=== PATIENT | male | born 2005 | race Two or more races ===

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

== ENCOUNTER 2024-03-22 12:24 | Emergency (ER) | payer MEDICAID, SELFPAY ==
[~2024-03-22] VITALS: Ht 175.3 cm; Wt 69.2 kg
[~2024-03-22 12:24] MED LIST changes: +ZOFR4T PO
[2024-03-22 12:37] VITALS: TEMP 99.5
[2024-03-22 12:51] VITALS: BP 151/90
--- NOTE | 2024-03-22 13:25 | ED.PDOC ---
Eye-HPI HPI Comments A 18 YEAR OLD MALE PRESENTS TO THE ED WITH COMPLAINT OF SORE THROAT. PATIENT STATES HE HAS BEEN EXPERIENCING A SORE THROAT THAT IS WORSE WITH SWALLOWING FOR THE PAST 3 DAYS. PATIENT DENIES FEVER, CHILLS, SHORTNESS OF BREATH, CHEST PAIN, ABDOMINAL PAIN, NAUSEA, VOMITING, HEADACHE, OR OTHER COMPLAINTS. NO OTHER SYMPTOMS OR MODIFYING FACTORS AT THIS TIME. PATIENT IS ALERT, ORIENTED X 4, AND HAS STEADY GAIT. Chief Complaint: Sore Throat Time Seen by MD: 12:48 Primary Care Provider: NONE Reviewed Notes: Nurses Notes, Medications, Allergies Allergies: Coded Allergies: NO KNOWN ALLERGIES (Unverified , 06/08/22) Home Meds Active Scripts Lidocaine HCl (Mouth-Throat) (Lidocaine HCl Viscous) 2 % Harika, 5 ML MT TID, #100 ML Prov:MITALI FONTANA 03/22/24 Clindamycin Hcl (Clindamycin Hcl) 300 Mg Cap, 1 CAP PO TID, #30 CAP Prov:MITALI FONTANA 03/22/24 Ondansetron Odt 4MG Tab (ZOFRAN PO) 4 Mg Tb, 4 MG PO TID PRN, #20 TAB ODT TAB-DISSOLVE IN MOUTH, THEN SWALLOW Prov:CHRISSIE STOUT 03/13/23 Ondansetron (Zofran) 4 Mg Tab, 1 TAB PO Q6HR PRN, #10 TAB 0 Refills Prov:PAULA HOANG 06/08/22 Information Source: Patient Mode of Arrival: Ambulatory Timing: Days Duration: Since onset, Days Prehospital treatment: None Quality: Pain, Red Lids: Normal Conjunctiva: Normal Cornea: Normal Pupils: Normal EOM: Normal Fundus: Normal Slit lamp exam: Normal Anterior chamber: Normal Mouth Location: Pharynx Mouth: Normal ENT Ear Exam: Normal, Normal, Normal Nose: Normal Sinuses: Normal Oropharynx: Tonsillar hypertrophy, Red, Exudate Onset: Spontaneous Throat Exposed to: None History of: None Last Tetanus: UTD Modifying factors: Nothing Associated signs and symptoms: Sore Throat Past Medical History PAST MEDICAL HISTORY: Denies Surgical History: Denies all surgeries Family History Family History: Reviewed,noncontributory to illness Social History Smoker: Non-Smoker Alcohol: Denies ETOH Use Drugs: Marijuana Lives In: Home Constitutional: denies: chills, diaphoresis, fatigue, fever, malaise, sweats, weakness, others EENTM: reports: throat pain, throat swelling; denies: blurred vision, double vision, ear bleeding, ear discharge, ear drainage, ear pain, ear ringing, eye pain, eye redness, hearing loss, mouth pain, mouth swelling, nasal discharge, nose bleeding, nose congestion, nose pain, photophobia, tearing, voice changes, others Respiratory: denies: cough, hemoptysis, orthopnea, SOB at rest, shortness of breath, SOB with excertion, stridor, wheezing, others Cardiovascular: denies: chest pain, dizzy spells, diaphoresis, Dyspnea on exertion, edema, irregular heart beat, left arm pain, lightheadedness, palpitations, PND, syncope, others Gastrointestinal: denies: abdomen distended, abdominal pain, blood streaked bowels, constipated, diarrhea, dysphagia, difficulty swallowing, hematemesis, melena, nausea, poor appetite, poor fluid intake, rectal bleeding, rectal pain, vomiting, others Genitourinary: denies: burning, dysuria, flank pain, frequency, hematuria, incontinence, penile discharge, penile sore, pain, testicle pain, testicle swelling, urgency, others Neurological: denies: dizziness, fainting, headache, left sided numbness, left sided weakness, numbness, paresthesia, pre-existing deficit, right sided numbness, right sided weakness, seizure, speech problems, tingling, tremors, weakness, others Musculoskeletal: denies: back pain, gout, joint pain, joint swelling, muscle pain, muscle stiffness, neck pain, others Integumetry: denies: bruises, change in color, change in hair/nails, dryness, laceration, lesions, lumps, rash, wounds, others Allergic/Immunocompromised: denies: Difficulty Healing, Frequent Infections, Hives, Itching, others Hematologic/Lymphatic: denies: anemia, blood clots, easy bleeding, easy bruising, swollen glands, others Endocrine: denies: excessive hunger, excessive sweating, excessive thirst, excessive urination, flushing, intolerance to cold, intolerance to heat, unexplained weight gain, unexplained weight loss, others Psychiatric: denies: anxiety, bipolar disorder, depression, hopeless, panic disorder, schizophrenia, sleepless, suicidal, others All Other Systems: Reviewed and Negative Physical Exam General Appearance: No Apparent Distress, Normal HEENT: PERRL/EOMI, Pharyngeal Erythema (TONSILLAR SWELLING WITH MILD EXUDATES. ), TMs Normal, Tonsillar Exudate (MILD ) Neck: Full Range of Motion, Lymphadenopathy (L), Normal Inspection, Supple, Tender Lateral (TENDERNESS LEFT UPPER CERVICAL LYMPH NODE. ) Respiratory: Chest Non-Tender, Lungs Clear, No Accessory Muscle Use, No Respiratory Distress, Normal Breath Sounds Cardiovascular: No Edema, No JVD, No Murmur, No Gallop, Normal Peripheral Pulses, Regular Rate/Rhythm Breast Exam: Deferred Gastrointestinal: No Organomegaly, Non Tender, No Pulsatile Mass, Normal Bowel Sounds, Soft Genitalia: Deferred Pelvic: Deferred Rectal: Deferred Extremities: No calf tenderness, Normal capillary refill, Normal inspection, Normal range of motion, Non-tender, No pedal edema Musculoskeletal : Apperance: Normal Neurologic: Alert, plaque maker II-XII nml as Tested, No Motor Deficits, Normal Affect, Normal Mood, No Sensory Deficits Cerebellar Function: Normal Reflexes: Normal Skin: Dry, Normal Color, Warm Peripheral Pulses: 2+ carotid (R), 2+ carotid (L) Lymphatic: Cervical Adenopathy (L) Was a procedure done? Was a procedure done?: No EENT DIFF Eye: N/A Ear: Otitis Media, Pharyngitis, Sinusitis Nose: N/A Mouth: N/A Sore Throat: Pharyngitis, Streptococcal, Viral Pharyngitis, URI X-Ray, Labs, Meds, VS Vital Signs Date Time Temp Pulse Resp B/P (MAP) Pulse Ox O2 Delivery O2 Flow Rate FiO2 03/22/24 13:41 76 18 97 Room Air* 0 21 03/22/24 12:51 99.5 76 18 151/90 (110) 97 03/22/24 12:37 99.5 76 18 151/90 (110) 97 99.5 Lab Test 03/22/24 13:53 Range/Units Group A Streptococcus Rapid Negative Current Medications Medications (Trade) Dose Ordered Sig/Janak Route Start Time Stop Time Status Last Admin Ceftriaxone Sodium 50 ml @ 100 mls/hr ONCE ONCE IV 03/22/24 13:30 03/22/24 13:59 DC 03/22/24 13:34 Clindamycin Phosphate 50 ml @ 50 mls/hr ONCE ONCE IV 03/22/24 13:30 03/22/24 14:29 03/22/24 13:51 Ketorolac Tromethamine (Toradol Injection) 30 mg ONCE ONCE IV 03/22/24 13:30 03/22/24 13:31 DC 03/22/24 13:34 Methylprednisolone Sodium Succinate (Solu Medrol) 125 mg ONCE ONCE IV 03/22/24 13:30 03/22/24 13:31 DC 03/22/24 13:34 X-Ray, Labs, Meds, VS Comment TREATMENT: ROCEPHIN 1 G IV, CLINDAMYCIN 600 MG IV, TORADOL 30 MG IV, SOLU- MEDROL 125 MG IV LABS ORDERED: STREP A RAPID REVIEWED AND INTERPRETED RESULTS: NEGATIVE Time of 1ST Reevaluation: 14:30 Reevaluation 1ST: Improved Patient Education/Counseling: Diagnosis, Treatment, Need For Follow Up Family Education/Counseling: Diagnosis, Treatment, Need For Follow Up Medical Screening: No EMC Exist At This Time Departure 1 Departure Time of Disposition: 14:30 Impression: Primary Impression: Exudative tonsillitis Additional Impression: Cervical adenitis Disposition: 01 HOME / SELF CARE / HOMELESS Condition: Stable Additional Instructions: FOLLOW-UP WITH PCP IN 1 TO 2 DAYS. TAKE MEDICATIONS PRESCRIBED. RETURN TO ED FOR ANY NEW OR WORSENING SYMPTOMS. e-Prescriptions Lidocaine HCl (Mouth-Throat) (Lidocaine HCl Viscous) 2 % Harika 5 ML MT TID, #100 ML Prov: MITALI FONTANA 03/22/24 Clindamycin Hcl (Clindamycin Hcl) 300 Mg Cap 1 CAP PO TID, #30 CAP Prov: MITALI FONTANA 03/22/24 Discharged With: Self Critical Care Note Critical Care Time?: No Stability Stability form required: No I personally scribed for MITALI FONTANA ([email or web address]) on 03/22/24 at 13:25. Electronically submitted by Dedrick Hui ([email or web address]). I personally scribed for MITALI FONTANA ([email or web address]) on 03/22/24 at 14:17. Electronically submitted by Dedrick Hui ([email or web address]). MITALI FONTANA Mar 22, 2024 13:25
[2024-03-22] MEDS: KETOROLAC TROMETH 30 MG/ML 1ML VIAL IV ONE (13:34)
[2024-03-22] MEDS: methylPREDNISolone SOD SUCC 125 MG/2 ML VL IV ONE (13:34)
[2024-03-22] MEDS: cefTRIAXone 1GM/50ML D5W 50 ML IV ONE (13:34)
[2024-03-22 13:41] VITALS: PULSE 76; RESP 18; O2SAT 97
[2024-03-22] MEDS: CLINDAMYCIN 600MG IV 50 ML IV ONE (13:51)
[2024-03-22] MEDS ORDERED: LIDO2SOL26 MT (14:09)
[2024-03-22] MEDS ORDERED: CLIN1CAP70 PO (14:09)
[2024-03-22 14:13] LABS: Rapid Strep A Screen-Throat Negative
== END 2024-03-22 14:32 | disposition home or self-care (01) ==
LOC: ER 12:24
DX: I88.9 Nonspecific lymphadenitis, unspecified (principal); J03.90 Acute tonsillitis, unspecified; F15.90 Other stimulant use, unspecified, uncomplicated; Z79.899 Other long term (current) drug therapy
CPT/HCPCS: 87070; 87880; 96365; 96367; 96375; 99284; J0696; J1885; J2919; J3490

== ENCOUNTER 2024-08-11 01:20 | Inpatient (IN) | payer MEDICAID, SELFPAY ==
[~2024-08-11] VITALS: Ht 175.3 cm; Wt 73.2 kg
[~2024-08-11 01:20] MED LIST changes: +CLIN1CAP70 PO; +LIDO2SOL26 MT
--- NOTE | 2024-08-11 01:59 | ED.PDOC ---
History of Present Illness HPI Comments 18 y/o M, with a history of marijuana use, presents with father for c/o black- stools, nausea, and vomiting, today. Patient endorses on having symptoms since 08/08/24 following initial gradual and unprovoked onset and being unable to tolerate food or liquids since. He comments further on having occasional bila teral rib pain after vomiting. Patient reports no further relevant or pertinent information, such any additional significant history or recent sick contact exposure, spoiled food intake, or injuries. He denies any abdominal pain, hematemesis, urinary symptoms, fever, chills, weakness, or other associated symptoms at this time. Time Seen by MD: 03:10 Primary Care Provider: NONE Reviewed Notes: Nurses Notes, Medications, Allergies Allergies: Coded Allergies: NO KNOWN ALLERGIES (Unverified , 06/08/22) Home Meds Active Scripts Ondansetron Odt 4MG Tab (ZOFRAN PO) 4 Mg Tb, 4 MG PO TID PRN, #20 TAB ODT TAB-DISSOLVE IN MOUTH, THEN SWALLOW Prov:CHRISSIE STOUT 03/13/23 Ondansetron (Zofran) 4 Mg Tab, 1 TAB PO Q6HR PRN, #10 TAB 0 Refills Prov:PAULA HOANG 06/08/22 Discontinued Scripts Lidocaine HCl (Mouth-Throat) (Lidocaine HCl Viscous) 2 % Harika, 5 ML MT TID, #100 ML Prov:MITALI FONTANA 03/22/24 Clindamycin Hcl (Clindamycin Hcl) 300 Mg Cap, 1 CAP PO TID, #30 CAP Prov:MITALI FONTANA 03/22/24 Information Source: Patient, Relative (Father) Mode of Arrival: EMS Severity: Moderate Timing: Days Duration: Since onset Prehospital treatment: None Past Medical History PAST MEDICAL HISTORY: Denies Surgical History: Denies all surgeries Family History Family History: Reviewed,noncontributory to illness Social History Smoker: Non-Smoker Alcohol: Denies ETOH Use Drugs: Marijuana Lives In: Home All Other Systems: Reviewed and Negative (Comprehensive systems review obtained and negative except for what is stated in the HPI.) Physical Exam General Appearance: Moderate Distress, Obese HEENT: Normal ENT Inspection, Pharynx Normal, TMs Normal, Other (dry mucus membranes, otherwise normal HEENT exam) Neck: Full Range of Motion, Non-Tender, Normal, Normal Inspection Respiratory: Chest Non-Tender, Lungs Clear, No Accessory Muscle Use, No Respiratory Distress, Normal Breath Sounds Cardiovascular: No Edema, No JVD, No Murmur, No Gallop, Normal Peripheral Pulses, Regular Rate/Rhythm Breast Exam: Deferred Gastrointestinal: Diffuse, No Organomegaly, No Pulsatile Mass, Normal Bowel Sounds, Soft Genitalia: Deferred Pelvic: Deferred Rectal: Deferred Extremities: No calf tenderness, Normal capillary refill, Normal inspection, Normal range of motion, Non-tender, No pedal edema Musculoskeletal : Apperance: Normal Neurologic: Alert, american studies professor II-XII nml as Tested, No Motor Deficits, Normal Affect, Normal Mood, No Sensory Deficits Cerebellar Function: NOT DONE Reflexes: NOT DONE Skin: Dry, Normal Color, Warm Peripheral Pulses: 3+ Radial (R), 3+ Radial (L) Lymphatic: No Adenopathy Was a procedure done? Was a procedure done?: No Differential Dx Considerations may include: gastritis, gastroenteritis, GERD, PUD, upper-GI bleed, viral syndrome, spoiled food, among others X-Ray, Labs, Meds, VS Vital Signs Date Time Temp Pulse Resp B/P (MAP) Pulse Ox O2 Delivery O2 Flow Rate FiO2 08/11/24 06:00 97.9 95 19 116/55 (75) 95 97.9 08/11/24 04:55 14 99 Room Air* 0 21 08/11/24 04:00 98.6 75 16 129/63 (85) 95 98.6 08/11/24 02:05 98.9 85 20 131/71 (91) 95 98.9 08/11/24 01:37 98.9 100 16 151/87 (108) 94 98.9 Lab Test 08/11/24 05:50 08/11/24 01:57 Range/Units Urine Color Yellow Yellow Urine Clarity Clear Clear Urine pH 6.5 5.0-9.0 Urine Specific [place] 1.035 1.001-1.035 Urine Protein 1+ H Negative Urine Ketones 2+ H Negative Urine Blood Negative Negative /uL Urine Nitrite Negative Negative Urine Bilirubin Negative Negative Urine Urobilinogen Normal Negative mg/dL Urine Leukocyte Esterase Negative Negative /uL Urine RBC 1 0 - 3 /hpf Urine Microscopic WBC 3 0-3 /HPF Urine Squamous Epithelial Cells None seen <5 /hpf Urine Bacteria None seen None Seen /hpf Urine Mucus Few None Seen Urine Glucose Trace Normal mg/dL White Blood Count 16.2 H 4.4-10.8 10^3/uL Red Blood Count 5.01 4.5-5.90 10^6/uL Hemoglobin 16.4 13.5-17.5 g/dL Hematocrit 46.5 41.0-53.0 % Mean Corpuscular Volume 92.8 80.0-100.0 fL Mean Corpuscular Hemoglobin 32.8 H 28.0-32.0 pg Mean Corpuscular Hemoglobin Concent 35.4 32.0-36.0 g/dL Red Cell Distribution Width 13.2 11.8-14.3 % Platelet Count 235 140-450 10^3/uL Mean Platelet Volume 9.0 6.9-10.8 fL Neutrophils (%) (Auto) 85.3 H 37.0-80.0 % Lymphocytes (%) (Auto) 8.4 L 10.0-50.0 % Monocytes (%) (Auto) 5.9 0.0-12.0 % Eosinophils (%) (Auto) 0.0 0.0-7.0 % Basophils (%) (Auto) 0.4 0.0-2.0 % Neutrophils # (Auto) 13.8 H 1.6-8.6 10 ^3/uL Lymphocytes # (Auto) 1.4 0.4-5.4 10 ^3/uL Monocytes # (Auto) 1.0 0-1.3 10 ^3/uL Eosinophils # (Auto) 0 0-0.8 10 ^3/uL Basophils # (Auto) 0.1 0-0.2 10 ^3/uL Nucleated Red Blood Cells 0.1 % Prothrombin Time 11.4 9.3-11.8 sec Prothrombin Time INR 1.08 0.9-1.15 Activated Partial Thromboplast Time 28.0 24.5-34.5 SEC Sodium Level 137 136-145 mmol/L Potassium Level 3.3 L 3.5-5.1 mmol/L Chloride Level 99 98-107 mmol/L Carbon Dioxide Level 27 20-31 mmol/L Anion Gap 11 5-15 Blood Urea Nitrogen 12 9-23 mg/dL Creatinine 0.92 0.700-1.30 mg/dL Glomerular Filtration Rate Calc 123 >90 mL/min BUN/Creatinine Ratio 13.0 10.0-20.0 Serum Glucose 101 74-106 mg/dL Lactic Acid Level 1.3 0.4-2.0 mmol/L Calcium Level 10.6 H 8.7-10.4 mg/dL Total Bilirubin 1.5 H 0.2-1.0 mg/dL Aspartate Amino Transferase (AST) 21 13-40 U/L Alanine Aminotransferase (ALT) 25 7-40 U/L Alkaline Phosphatase 60 46-116 U/L Total Protein 8.3 H 5.7-8.2 g/dL Albumin 5.5 H 3.2-4.8 g/dL Lipase 45 12-53 U/L Current Medications Medications (Trade) Dose Ordered Sig/Janak Route Start Time Stop Time Status Last Admin Sodium Chloride 1,000 ml @ 1,000 mls/hr Q1H ONCE IV 08/11/24 03:15 08/11/24 04:14 DC 08/11/24 04:26 Ondansetron HCl (Zofran) 4 mg ONCE ONCE IV 08/11/24 03:15 08/11/24 03:16 DC 08/11/24 04:25 Famotidine (Pepcid Injection) 20 mg ONCE ONCE IV 08/11/24 03:15 08/11/24 03:16 DC 08/11/24 04:26 Patient alert. Complaining of abdominal pain. Vitals stable. Answering all questions. CT scan of the abdomen reviewed does show colitis. Bilirubin elevated. Potassium is low. Was given potassium. Was given Pepcid. Was given Zofran. Establish intravenous access. Was given fluids. WBC elevated. Was given Rocephin. Was given Flagyl. Explained to the patient. Continue monitoring. Time of 1ST Reevaluation: 03:40 Reevaluation 1ST: Unchanged Patient Education/Counseling: Diagnosis, Treatment Family Education/Counseling: Diagnosis, Treatment Additional Information Previous visit documents reviewed: March 22, 2024 encounter for exudative tonsillitis The following tests were ordered, and results were reviewed by me: PTPTT, covid19/influenza A/B tests, UA, lipase, lactic acid w/reflex, CMP, CBC Additional Information was gathered from interviewing the following independent historians: father I reviewed and agreed with the following test results read by other providers: n/a I discussed treatment and results with medical personnel and: Patient, father Departure 1 Departure Time of Disposition: 08:30 Impression: Primary Impression: Non-specific colitis Disposition: ADMITTED INPATIENT Admit to: Med Surg Condition: Guarded Critical Care Note Critical Care Time?: No Stability Stability form required: No Heart Score Heart Score: Heart Score Response (Comments) Value History N/A 0 EKG N/A 0 Age N/A 0 Risk Factors N/A 0 Troponin N/A 0 Total 0 I personally scribed for JOHAN COLVIN MD ([email or web address]) on 08/11/24 at 01:59. Electronically submitted by Alexandre Plummer ([email or web address]). I personally scribed for JOHAN COLVIN MD ([email or web address]) on 08/11/24 at 02:28. Electronically submitted by Alexandre Plummer ([email or web address]). I personally scribed for JOHAN COLVIN MD ([email or web address]) on 08/11/24 at 03:31. Electronically submitted by Alexandre Plummer ([email or web address]). JOHAN COLVIN MD Aug 11, 2024 01:59 FLORA HEATH MD Aug 11, 2024 08:30
[2024-08-11 02:20] LABS: Basophils # (auto) 0.1 10 ^3/uL (0-0.2); Basophils % (auto) 0.4 % (0.0-2.0); Eosinophils # (auto) 0 10 ^3/uL (0-0.8); Hematocrit 46.5 % (41.0-53.0); Hemoglobin 16.4 g/dL (13.5-17.5); Lymphocytes # (auto) 1.4 10 ^3/uL (0.4-5.4); Lymphocytes % (auto) 8.4 % (10.0-50.0); Mean Corpuscular Hemoglobin 32.8 pg (28.0-32.0); Mean Corpuscular Hgb Conc. 35.4 g/dL (32.0-36.0); Mean Corpuscular Volume 92.8 fL (80.0-100.0); Monocytes % (auto) 5.9 % (0.0-12.0); Neutrophils # (auto) 13.8 10 ^3/uL (1.6-8.6); Neutrophils % (auto) 85.3 % (37.0-80.0); Nucleated Red Blood Cells % 0.1 %; Platelet Count (auto) 235 10^3/uL (140-450); Red Blood Cells 5.01 10^6/uL (4.5-5.90); Red Cell Distribution Width 13.2 % (11.8-14.3); White Blood Cell 16.2 10^3/uL (4.4-10.8)
[2024-08-11 02:35] LABS: INR 1.08 (0.9-1.15); Prothrombin Time 11.4 sec (9.3-11.8)
[2024-08-11 03:22] LABS: Alanine Aminotransferase 25 U/L (7-40); Alkaline Phosphatase 60 U/L (46-116); Anion Gap 11 (5-15); Aspartate Aminotransferase 21 U/L (13-40); Blood Urea Nitrogen 12 mg/dL (9-23); Carbon Dioxide 27 mmol/L (20-31); Chloride 99 mmol/L (98-107); Glucose 101 mg/dL (74-106); Lipase 45 U/L (12-53); Sodium 137 mmol/L (136-145)
[2024-08-11 03:27] LABS: Albumin 5.5 g/dL (3.2-4.8); Bilirubin, Total 1.5 mg/dL (0.2-1.0); Calcium 10.6 mg/dL (8.7-10.4); Potassium 3.3 mmol/L (3.5-5.1); Total Protein 8.3 g/dL (5.7-8.2)
[2024-08-11] MEDS: ONDANSETRON HCL 4 MG/2 ML VIAL IV ONE (04:25)
[2024-08-11] MEDS: SODIUM CHLORIDE 0.9% 1,000 ML IV ONE ×3 (04:26→09:10)
[2024-08-11] MEDS: FAMOTIDINE (10MG/ML) 2ML VL IV ONE (04:26)
[2024-08-11] MEDS: IOHEXOL 300 MG/ML 100ML BOTTLE IJ ONE (04:52)
[2024-08-11 04:55] VITALS: RESP 14; O2SAT 99
[2024-08-11 05:50] LABS: Urine Bacteria None Seen /hpf (None Seen)
[2024-08-11 05:55] LABS: Urine Blood Negative /uL (Negative); Urine Clarity Clear (Clear); Urine Color Yellow (Yellow); Urine Mucus FEW (None Seen); Urine Protein, UAD 1+ (Negative); Urine Specific Gravity 1.035 (1.001-1.035); Urine Squamous Epithelial Cell None Seen /hpf (<5); Urine Urobilinogen Normal (Negative); Urine WBC 3 /HPF (0-3); Urine pH 6.5 (5.0-9.0)
[2024-08-11 08:00] VITALS: PULSE 72; RESP 16; O2SAT 98
--- NOTE | 2024-08-11 08:14 | DVH ---
Exam: CT CT AB PEL WITH IV CON ONLY History: abdominal pain Comparison Study: None available at time of dictation. Technique: Multidetector spiral CT of the abdomen was performed from lung bases to pubic symphysis. A xial imaging was performed with intravenous contrast following the uneventful administration of 100 m l Omnipaque 300. Coronal and sagittal multiplanar reformats were obtained from the axial data set by the technologist. Radiation Dose : 1. Abdomen/Pelvis: CTDIvol 6.21 mGy, DLP 362.3 mGy*cm. Findings: Lung Bases: Lung bases are clear. Visualized portions of the heart and pericardium are unremarkable. Liver: The liver is normal in size. No focal lesions. Gallbladder and Biliary Tree: The gallbladder is unremarkable. No intrahepatic or extrahepatic bilia ry ductal dilatation. Spleen: Unremarkable Pancreas: The pancreas enhances normally and there are no focal lesions. The main pancreatic duct is not dilated Adrenal Glands: Unremarkable Kidneys: Kidneys enhance symmetrically. No calculi or hydronephrosis. GI tract: The stomach is grossly normal in appearance.. No evidence of small bowel wall thickening or abnormal dilatation to suggest bowel obstruction. Mild wall thickening of the ascending colon. Norm al caliber appendix. Peritoneum/mesentery/retroperitoneum. No evidence of free intraperitoneal air. No ascites. No evidenc e of suspicious lymphadenopathy. Abdominal Wall: Unremarkable. Vasculature: Abdominal aorta and main branches are unremarkable. Normal vascular enhancement. Urinary Bladder: Grossly unremarkable for degree of distention. Pelvic Organs: Unremarkable Musculoskeletal: No aggressive focal bony lesions, acute fractures or dislocation. IMPRESSION: 1. Findings which may represent mild colitis of the ascending colon. No bowel obstruction. No pneumop eritoneum or free fluid.
[2024-08-11] MEDS: POTASSIUM EFFERVESENT TAB 25 MEQ PO ONE (09:08)
[2024-08-11] MEDS: metroNIDAZOLE 500MG/100ML 100 ML IV ONE (09:09)
[2024-08-11] MEDS: cefTRIAXone 1GM/50ML D5W 50 ML IV ONE (09:09)
[2024-08-11] MEDS ORDERED: ACETAMINOPHEN 325 MG TAB PO PRN (09:30)
--- NOTE | 2024-08-11 09:35 | DVHHP2 ---
History of Present Illness Reason for Visit: Abdominal Pain History of Present Illness Chandrakant Payne is a 18-year-old male with no significant past medical history, who comes in with complaints of abdominal pain. Patient states he has been experiencing nausea, vomiting, and, diarrhea since last Sunday. He has not been able to keep anything down since last Sunday. He has attempted to eat chicken soup and drink Pedialyte. Patient states that this problem has been happening about once every three months for the last year. He states his vomit has black in it and so does his stool. Patient is a daily marijuana smoker. Past Surgical History: None Smoke: <1 pack per day (2 cigarettes/day and vape) ALCOHOL: none Drugs: Marijuana (daily) Lives: with Family Domestic Violence: Neg Review of Systems Constitutional: No: Fever, Chills, Sweats, Weakness, Malaise, Other Eyes: No: Pain, Vision change, Conjunctivae inflammation, Eyelid inflammation, Other, Redness ENT: No: Ear pain, Ear discharge, Nose pain, Nose discharge, Nose congestion, Mouth pain, Mouth swelling, Throat pain, Throat swelling, Other Respiratory: No: Cough, Dry, Shortness of breath, SOB with excertion, Wheezing, Hemoptysis, Pleuritic Pain, Sputum, Wheezing, Other Cardiovascular: No: Chest Pain, Palpitations, Orthopnea, Paroxysmal Noc. Dyspnea, Edema, Lt Headedness, Other Gastrointestinal: Nausea, Vomiting (dark/black liquid), Abdominal Pain, Diarrhea (dark/black stool); No: Constipation, Melena, Hematochezia, Other Genitourinary: No Dysuria, No Frequency, No Incontinence, No Hematuria, No Retention, No Other Musculoskeletal: No: other, neck pain, shoulder pain, arm pain, back pain, hand pain, leg pain, foot pain Skin: No: Rash, Lesions, Jaundice, Bruising, Other Neurological: No: Weakness, Numbness, Incoordination, Change in speech, Confusion, Seizures, Other Allergies: Coded Allergies: NO KNOWN ALLERGIES (Unverified , 06/08/22) Exam Vital Signs Vital Signs Date Time Temp Pulse Resp B/P (MAP) Pulse Ox O2 Delivery O2 Flow Rate FiO2 08/11/24 08:55 54 08/11/24 06:00 97.9 19 116/55 (75) 95 97.9 08/11/24 04:55 Room Air* 0 21 General Appearance: Alert, Oriented X3, Cooperative, mild distress HEENT: Atraumatic, PERRLA, Other (dry mucous membr) Respiratory: Clear to auscultation, Normal air movement Cardiovascular: Regular rate, Normal S1, Normal S2, No murmurs Abdominal: Normal bowel sounds, Soft, No tenderness Extremities: No clubbing, No cyanosis, No edema, Normal pulses Skin: No rashes, No breakdown, No significant lesion Neuro: Normal gait, Normal speech, Strength at 5/5 X4 ext Psych/Mental Status: Mental status NL, Mood NL Labs/Xrays Labs Test 08/11/24 08:41 08/11/24 05:50 08/11/24 01:57 Range/Units Lactic Acid Level 1.0 0.4-2.0 mmol/L Urine Color Yellow Yellow Urine Clarity Clear Clear Urine pH 6.5 5.0-9.0 Urine Specific [place] 1.035 1.001-1.035 Urine Protein 1+ H Negative Urine Ketones 2+ H Negative Urine Blood Negative Negative /uL Urine Nitrite Negative Negative Urine Bilirubin Negative Negative Urine Urobilinogen Normal Negative mg/dL Urine Leukocyte Esterase Negative Negative /uL Urine RBC 1 0 - 3 /hpf Urine Microscopic WBC 3 0-3 /HPF Urine Squamous Epithelial Cells None seen <5 /hpf Urine Bacteria None seen None Seen /hpf Urine Mucus Few None Seen Urine Glucose Trace Normal mg/dL White Blood Count 16.2 H 4.4-10.8 10^3/uL Red Blood Count 5.01 4.5-5.90 10^6/uL Hemoglobin 16.4 13.5-17.5 g/dL Hematocrit 46.5 41.0-53.0 % Mean Corpuscular Volume 92.8 80.0-100.0 fL Mean Corpuscular Hemoglobin 32.8 H 28.0-32.0 pg Mean Corpuscular Hemoglobin Concent 35.4 32.0-36.0 g/dL Red Cell Distribution Width 13.2 11.8-14.3 % Platelet Count 235 140-450 10^3/uL Mean Platelet Volume 9.0 6.9-10.8 fL Neutrophils (%) (Auto) 85.3 H 37.0-80.0 % Lymphocytes (%) (Auto) 8.4 L 10.0-50.0 % Monocytes (%) (Auto) 5.9 0.0-12.0 % Eosinophils (%) (Auto) 0.0 0.0-7.0 % Basophils (%) (Auto) 0.4 0.0-2.0 % Neutrophils # (Auto) 13.8 H 1.6-8.6 10 ^3/uL Lymphocytes # (Auto) 1.4 0.4-5.4 10 ^3/uL Monocytes # (Auto) 1.0 0-1.3 10 ^3/uL Eosinophils # (Auto) 0 0-0.8 10 ^3/uL Basophils # (Auto) 0.1 0-0.2 10 ^3/uL Nucleated Red Blood Cells 0.1 % Prothrombin Time 11.4 9.3-11.8 sec Prothrombin Time INR 1.08 0.9-1.15 Activated Partial Thromboplast Time 28.0 24.5-34.5 SEC Sodium Level 137 136-145 mmol/L Potassium Level 3.3 L 3.5-5.1 mmol/L Chloride Level 99 98-107 mmol/L Carbon Dioxide Level 27 20-31 mmol/L Anion Gap 11 5-15 Blood Urea Nitrogen 12 9-23 mg/dL Creatinine 0.92 0.700-1.30 mg/dL Glomerular Filtration Rate Calc 123 >90 mL/min BUN/Creatinine Ratio 13.0 10.0-20.0 Serum Glucose 101 74-106 mg/dL Calcium Level 10.6 H 8.7-10.4 mg/dL Total Bilirubin 1.5 H 0.2-1.0 mg/dL Aspartate Amino Transferase (AST) 21 13-40 U/L Alanine Aminotransferase (ALT) 25 7-40 U/L Alkaline Phosphatase 60 46-116 U/L Total Protein 8.3 H 5.7-8.2 g/dL Albumin 5.5 H 3.2-4.8 g/dL Lipase 45 12-53 U/L Exam: CT CT AB PEL WITH IV CON ONLY Findings: Lung Bases: Lung bases are clear. Visualized portions of the heart and pericardium are unremarkable. Liver: The liver is normal in size. No focal lesions. Gallbladder and Biliary Tree: The gallbladder is unremarkable. No intrahepatic or extrahepatic biliary ductal dilatation. Spleen: Unremarkable Pancreas: The pancreas enhances normally and there are no focal lesions. The main pancreatic duct is not dilated Adrenal Glands: Unremarkable Kidneys: Kidneys enhance symmetrically. No calculi or hydronephrosis. GI tract: The stomach is grossly normal in appearance.. No evidence of small bowel wall thickening or abnormal dilatation to suggest bowel obstruction. Mild wall thickening of the ascending colon. Normal caliber appendix. Peritoneum/mesentery/retroperitoneum. No evidence of free intraperitoneal air. No ascites. No evidence of suspicious lymphadenopathy. Abdominal Wall: Unremarkable. Vasculature: Abdominal aorta and main branches are unremarkable. Normal vascular enhancement. Urinary Bladder: Grossly unremarkable for degree of distention. Pelvic Organs: Unremarkable Musculoskeletal: No aggressive focal bony lesions, acute fractures or dislocation. IMPRESSION: 1. Findings which may represent mild colitis of the ascending colon. No bowel obstruction. No pneumoperitoneum or free fluid. Assessment/Plan Assessment/Plan Assessment: Non-specific colitis, Hypokalemia, Leukocytosis, Plan: Admit to Med-Surg, GI consult, IV hydration, IV antibiotics, Protonix IV, Clear liquid diet, Antiemetics, Manage/Monitor electrolytes closely, Plan discussed with: Patient, Other (father) My Orders Orders - WILMAN CAO Procedure Category Date Status Time Admit ADMIT 08/11/24 Verified 09:22 Code Status CODE 08/11/24 Verified 09:22 Ondansetron Hcl PHA 08/11/24 Verified (Zofran) 09:30 Complete Blood Count LAB 08/12/24 Verified 04:00 Comprehensive LAB 08/12/24 Verified Metabolic Panel 04:00 Condition: Serious [place] 08/11/24 Verified 09:22 Acetaminophen Tablet PHA 08/11/24 Verified (Tylenol Tablet) 09:30 Clear Liq Diet DIET 08/11/24 Verified Breakfast Ceftriaxone Ivpb PHA 08/12/24 Verified Rocephin 09:00 Metronidazole Ivpb PHA 08/11/24 Verified Flagyl 14:00 Metoclopramide PHA 08/11/24 Verified Injection (Reglan 09:30 * Gi [facility] Paid Intern CONS 08/11/24 Verified 09:22 Date of Service: Aug 11, 2024 Billing Provider: WILMAN CAO Common Visit Codes: [id number] INP/OBS CARE (MOD) WILMAN CAO Aug 11, 2024 09:35
[2024-08-11] MEDS: METOCLOPRAMIDE HCL 5MG/ml INJ 2ml VIAL IV PRN (09:41)
[2024-08-11] MEDS: ONDANSETRON HCL 4 MG/2 ML VIAL IV PRN (09:41)
[2024-08-11] MEDS: PANTOPRAZOLE 40 MG/10 ML VIAL INJ IV SCH (11:02)
[2024-08-11 13:10] VITALS: PULSE 62; RESP 11; O2SAT 96
[2024-08-11] MEDS: metroNIDAZOLE 500MG/100ML 100 ML IV SCH (15:34)
[2024-08-11 16:31] LABS: Magnesium 2.2 mg/dL (1.6-2.6)
[2024-08-11 16:35] LABS: Potassium 3.4 mmol/L (3.5-5.1)
[2024-08-11 17:00] VITALS: PULSE 58; RESP 17; O2SAT 95
[2024-08-11 20:00] VITALS: PULSE 74; RESP 18; O2SAT 97
[2024-08-11 20:42] VITALS: BP 131/66; PULSE 74; RESP 18; TEMP 98.7; O2SAT 97
[2024-08-12] VITALS (8 sets, daily range): BP systolic 117–132; BP diastolic 58–98; PULSE 63–86; RESP 17–18; TEMP 98–98.7; O2SAT 96–99
[2024-08-12 07:17] LABS: Basophils # (auto) 0.1 10 ^3/uL (0-0.2); Basophils % (auto) 0.3 % (0.0-2.0); Eosinophils # (auto) 0 10 ^3/uL (0-0.8); Eosinophils % (auto) 0.1 % (0.0-7.0); Hematocrit 41.6 % (41.0-53.0); Hemoglobin 14.4 g/dL (13.5-17.5); Lymphocytes # (auto) 1.3 10 ^3/uL (0.4-5.4); Lymphocytes % (auto) 6.4 % (10.0-50.0); Mean Corpuscular Hemoglobin 32.3 pg (28.0-32.0); Mean Corpuscular Hgb Conc. 34.7 g/dL (32.0-36.0); Monocytes # (auto) 1.2 10 ^3/uL (0-1.3); Monocytes % (auto) 6.1 % (0.0-12.0); Neutrophils # (auto) 17.1 10 ^3/uL (1.6-8.6); Neutrophils % (auto) 87.1 % (37.0-80.0); Platelet Count (auto) 183 10^3/uL (140-450); Red Blood Cells 4.47 10^6/uL (4.5-5.90); Red Cell Distribution Width 12.8 % (11.8-14.3); White Blood Cell 19.7 10^3/uL (4.4-10.8)
[2024-08-12 07:21] LABS: Alanine Aminotransferase 15 U/L (7-40); Alkaline Phosphatase 52 U/L (46-116); Anion Gap 14 (5-15); BUN/Creatinine Ratio 11.3 (10.0-20.0); Calcium 9.4 mg/dL (8.7-10.4); Carbon Dioxide 25 mmol/L (20-31); Chloride 103 mmol/L (98-107); Glucose 80 mg/dL (74-106); Sodium 142 mmol/L (136-145); Total Protein 6.6 g/dL (5.7-8.2)
[2024-08-12 07:22] LABS: Albumin 4.4 g/dL (3.2-4.8); Blood Urea Nitrogen 9 mg/dL (9-23); Potassium 3.3 mmol/L (3.5-5.1)
[2024-08-12 07:23] LABS: Aspartate Aminotransferase 9 U/L (13-40); Bilirubin, Total 1.9 mg/dL (0.2-1.0)
[2024-08-12] MEDS: cefTRIAXone 1GM/50ML D5W 50 ML IV SCH (08:46)
[2024-08-12] MEDS: POTASSIUM EFFERVESENT TAB 25 MEQ PO ONE (08:47)
[2024-08-12 09:11] LABS: COVID19 ANTIGEN SOFIA FIA NEGATIVE (NEGATIVE); Rapid Influenza A Negative (Negative); Rapid Influenza B Negative (Negative)
[2024-08-12] MEDS: CAPSAICIN 0.025% CREAM 60GM TOP ONE (09:45)
[2024-08-12] MEDS ORDERED: HALOPERIDOL LACTATE 5 MG/ML INJ VIAL IM PRN (09:45)
--- NOTE | 2024-08-12 09:59 | DVHPNRES ---
Progress Note Date Seen: Aug 12, 2024 Resident Creating Document: RUSSELL LEÓN RESIDENT Has the PT tested + for MRSA If YES, has PT been informed?: No Medical Necessity Reason Pt with a Central, PICC or Fol: No Subjective Review of Systems 18-year-old male patient with past medical history of drug abuse( marijuana) and nicotine dependency who presented to the emergency department with a chief complaint of epigastric abdominal pain associated with nausea and vomiting for the past 2 days he reports having more than 10 episodes of vomiting described as black greenish discoloration, and about 5 episodes of diarrhea with the same characteristics. Patient reports he uses marijuana daily and he used to smoke 2-3 cigarettes daily, he has been dealing with these episodes every 3 months for the past year, on today's examination vital signs remained stable, there is marked leukocytosis 19.7 but no signs of anemia. Potassium was found to be low 3.3 that was replaced abdominal CT scan showed mild colitis of the ascending colon. ROS: Constitutional: No: Fever, Chills, Sweats, Weakness, Malaise, Other ENT: No: Ear pain, Ear discharge, Nose pain, Nose discharge, Nose congestion, Mouth pain, Mouth swelling, Throat pain, Throat swelling, Other Respiratory: No Wheezing, Hemoptysis, Pleuritic Pain, Sputum, Wheezing, Other Cardiovascular: No: Chest Pain, Palpitations, Orthopnea, Paroxysmal Noc. Dyspnea, Edema, Lt Headedness, Other Gastrointestinal: Yes: Mild abdominal pain on palpation No: Nausea, Vomiting, Abdominal Pain, Diarrhea, Constipation, Melena, Hematochezia, Other Musculoskeletal: No: other, neck pain, shoulder pain, arm pain, back pain, hand pain, leg pain, foot pain Neurological:; No: Weakness, Numbness, Incoordination, Change in speech, Confusion, Seizures Patient reports: No new complaints Objective vital signs Vital Sign Date Time Temp Pulse Resp B/P (MAP) Pulse Ox O2 Delivery O2 Flow Rate FiO2 08/12/24 08:00 63 18 98 Room Air* 0 21 08/12/24 07:45 98.6 117/70 (86) 98.6 Total Intake and Output 08/11/24 08/11/24 08/12/24 15:00 23:00 07:00 Intake Total 1600 ml 1000 ml 700 ml Balance 1600 ml 1000 ml 700 ml medications Current Medications Medications Dose Ordered Sig/Janak Route Start Time Stop Time Status Last Admin Dose Admin Acetaminophen 650 mg Q6HP PRN PO 08/11/24 09:30 Pantoprazole Sodium 40 mg BID IV 08/11/24 10:00 08/11/24 21:03 40 MG Haloperidol Lactate 2.5 mg Q8HP PRN IM 08/12/24 09:45 Al Hydrox/Mg Hydrox/Simethicone 30 ml Q8HR PO 08/12/24 14:00 Examination Examination General Appearance: Alert, Oriented X3, Cooperative, No acute distress Respiratory: Clear to auscultation, Normal air movement Cardiovascular: Regular rate, Normal S1, Normal S2 Abdominal: hyperactive bowel sounds Extremities: No cyanosis, No edema, Normal pulses, No tenderness/swelling Skin: No rashes, No breakdown Neuro: Normal gait, Normal speech, Strength at 5/5 X4 ext, Normal tone, Sensation intact, Cranial nerves 3-12 NL, Reflexes 2+ Psych/Mental Status: Mental status NL, Mood NL laboratory and microbiology Laboratory Tests 08/12/24 05:04 Test 08/12/24 05:04 Range/Units Serum Glucose 80 74-106 mg/dL Microbiology Date/Time Source Procedure Growth Status 08/11/24 08:41 Blood Blood Culture - Preliminary NO GROWTH AFTER 24 HOURS OF INCUBATION. 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 #Drug abuse, marijuana use - marijuana cessation counseling #nicotine dependency/vape -smoking cessation counseling #Hypokalemia -replaced. Case discussed with Dr. Frost Goals of care discussed with the patient for 31 minutes Code status: Full Plan discussed with: Patient, Other (father) My Orders My Orders Orders - RUSSELL LEÓN RESIDENT Procedure Category Date Status Time Clostridium Difficile MARCOS 08/12/24 Uncollected Toxin 07:36 Stool Bacterial MARCOS 08/12/24 Uncollected Culture 07:36 Ph Stool LAB 08/12/24 Logged 07:36 Drug Screen LAB 08/12/24 Logged 07:36 Stool Occult Blood LAB 08/12/24 Uncollected 09:45 Full Liq Diet DIET 08/12/24 Transmitted Lunch Date of Service: Aug 12, 2024 Billing Provider: LISE FROST MD Common Visit Codes: [id number] INP/OBS CARE(MOD) RUSSELL LEÓN RESIDENT Aug 12, 2024 09:59 LISE FROST MD Aug 12, 2024 14:50
[2024-08-12] MEDS: MAALOX PLUS or MAALOX 30 ML PO ONE (10:05)
[2024-08-12] MEDS: MAALOX PLUS or MAALOX 30 ML PO SCH (14:35)
[2024-08-12 16:03] LABS: Amphetamine Screen, Urine Neg (NEGATIVE); Barbiturate Scree,Urine Neg (NEGATIVE); Benzodiazephine Screen, Urine Neg (NEGATIVE); Cannabinoid Screen, Urine Pos (NEGATIVE); Cocaine Screen, Urine Neg (NEGATIVE); Opiate Scree,Urine Neg (NEGATIVE); Phencyclidine Screen, Urine Neg (NEGATIVE)
[2024-08-13 01:00] VITALS: BP 118/69; PULSE 66; RESP 17; TEMP 98.3; O2SAT 99
[2024-08-13 05:00] VITALS: BP 130/78; PULSE 60; RESP 18; TEMP 98.1; O2SAT 100
[2024-08-13 05:43] LABS: Basophils # (auto) 0 10 ^3/uL (0-0.2); Basophils % (auto) 0.5 % (0.0-2.0); Eosinophils # (auto) 0.1 10 ^3/uL (0-0.8); Eosinophils % (auto) 1.1 % (0.0-7.0); Hemoglobin 14.3 g/dL (13.5-17.5); Lymphocytes # (auto) 1.7 10 ^3/uL (0.4-5.4); Lymphocytes % (auto) 20.5 % (10.0-50.0); Mean Corpuscular Hemoglobin 32.6 pg (28.0-32.0); Mean Corpuscular Volume 93.1 fL (80.0-100.0); Monocytes # (auto) 0.7 10 ^3/uL (0-1.3); Monocytes % (auto) 8.2 % (0.0-12.0); Neutrophils # (auto) 5.9 10 ^3/uL (1.6-8.6); Neutrophils % (auto) 69.7 % (37.0-80.0); Nucleated Red Blood Cells % 0.1 %; Platelet Count (auto) 192 10^3/uL (140-450); Red Blood Cells 4.41 10^6/uL (4.5-5.90); Red Cell Distribution Width 12.4 % (11.8-14.3); White Blood Cell 8.5 10^3/uL (4.4-10.8)
[2024-08-13 05:55] LABS: Anion Gap 9 (5-15); Carbon Dioxide 27 mmol/L (20-31); Chloride 105 mmol/L (98-107); Sodium 141 mmol/L (136-145)
[2024-08-13 05:57] LABS: Calcium 9.4 mg/dL (8.7-10.4)
[2024-08-13 06:01] LABS: BUN/Creatinine Ratio 9.5 (10.0-20.0); Glucose 80 mg/dL (74-106)
[2024-08-13 06:03] LABS: Blood Urea Nitrogen 8 mg/dL (9-23); Potassium 3.2 mmol/L (3.5-5.1)
[2024-08-13 08:00] VITALS: PULSE 88; RESP 18; O2SAT 99
[2024-08-13 08:56] VITALS: BP 130/92; PULSE 88; RESP 18; TEMP 97.8; O2SAT 93
[2024-08-13] MEDS: POTASSIUM EFFERVESENT TAB 25 MEQ PO ONE (10:48)
[2024-08-13 13:00] VITALS: BP 119/66; PULSE 86; RESP 18; TEMP 97.2; O2SAT 97
[2024-08-13 13:23] VITALS: BP 119/66; PULSE 86; RESP 20; TEMP 36.2; O2SAT 97
--- NOTE | 2024-08-13 21:46 | DVHDSRES ---
Discharge Summary Date of Admission Resident Creating Document: RUSSELL LEÓN RESIDENT Aug 11, 2024 at 09:22 Date of Discharge: Aug 13, 2024 Admitting Diagnosis Intractable vomiting likely due to marijuana induced hyperemesis Labs/Diagnostic Data: Laboratory Results Test 08/13/24 04:23 08/12/24 14:50 08/12/24 08:15 08/12/24 05:04 White Blood Count 8.5 10^3/uL (4.4-10.8) Red Blood Count 4.41 10^6/uL (4.5-5.90) Hemoglobin 14.3 g/dL (13.5-17.5) Hematocrit 41.0 % (41.0-53.0) Mean Corpuscular Volume 93.1 fL (80.0-100.0) Mean Corpuscular Hemoglobin 32.6 pg (28.0-32.0) Mean Corpuscular Hemoglobin Concent 35.0 g/dL (32.0-36.0) Red Cell Distribution Width 12.4 % (11.8-14.3) Platelet Count 192 10^3/uL (140-450) Mean Platelet Volume 9.3 fL (6.9-10.8) Neutrophils (%) (Auto) 69.7 % (37.0-80.0) Lymphocytes (%) (Auto) 20.5 % (10.0-50.0) Monocytes (%) (Auto) 8.2 % (0.0-12.0) Eosinophils (%) (Auto) 1.1 % (0.0-7.0) Basophils (%) (Auto) 0.5 % (0.0-2.0) Neutrophils # (Auto) 5.9 10 ^3/uL (1.6-8.6) Lymphocytes # (Auto) 1.7 10 ^3/uL (0.4-5.4) Monocytes # (Auto) 0.7 10 ^3/uL (0-1.3) Eosinophils # (Auto) 0.1 10 ^3/uL (0-0.8) Basophils # (Auto) 0 10 ^3/uL (0-0.2) Nucleated Red Blood Cells 0.1 % Sodium Level 141 mmol/L (136-145) Potassium Level 3.2 mmol/L (3.5-5.1) Chloride Level 105 mmol/L (98-107) Carbon Dioxide Level 27 mmol/L (20-31) Anion Gap 9 (5-15) Blood Urea Nitrogen 8 mg/dL (9-23) Creatinine 0.84 mg/dL (0.700-1.30) Glomerular Filtration Rate Calc 129 mL/min (>90) BUN/Creatinine Ratio 9.5 (10.0-20.0) Serum Glucose 80 mg/dL (74-106) Calcium Level 9.4 mg/dL (8.7-10.4) Urine Opiates Screen Neg (NEGATIVE) Urine Fentanyl Screen Neg (NEGATIVE) Urine Barbiturates Screen Neg (NEGATIVE) Urine Phencyclidine Screen Neg (NEGATIVE) Urine Amphetamines Screen Neg (NEGATIVE) Urine Benzodiazepines Screen Neg (NEGATIVE) Urine Cocaine Screen Neg (NEGATIVE) Urine Cannabinoids Screen Pos (NEGATIVE) Influenza Type A Antigen Negative (Negative) Influenza Type B Antigen Negative (Negative) SARS-CoV-2 Antigen (Rapid) Negative (NEGATIVE) Total Bilirubin 1.9 mg/dL (0.2-1.0) Aspartate Amino Transferase (AST) 9 U/L (13-40) Alanine Aminotransferase (ALT) 15 U/L (7-40) Alkaline Phosphatase 52 U/L (46-116) Total Protein 6.6 g/dL (5.7-8.2) Albumin 4.4 g/dL (3.2-4.8) Test 08/11/24 15:57 08/11/24 08:41 08/11/24 05:50 08/11/24 01:57 Magnesium Level 2.2 mg/dL (1.6-2.6) Lactic Acid Level 1.0 mmol/L (0.4-2.0) Urine Color Yellow (Yellow) Urine Clarity Clear (Clear) Urine pH 6.5 (5.0-9.0) Urine Specific [place] 1.035 (1.001-1.035) Urine Protein 1+ (Negative) Urine Ketones 2+ (Negative) Urine Blood Negative /uL (Negative) Urine Nitrite Negative (Negative) Urine Bilirubin Negative (Negative) Urine Urobilinogen Normal mg/dL (Negative) Urine Leukocyte Esterase Negative /uL (Negative) Urine RBC 1 /hpf (0 - 3) Urine Microscopic WBC 3 /HPF (0-3) Urine Squamous Epithelial Cells None seen /hpf (<5) Urine Bacteria None seen /hpf (None Seen) Urine Mucus Few (None Seen) Urine Glucose Trace mg/dL (Normal) Prothrombin Time 11.4 sec (9.3-11.8) Prothrombin Time INR 1.08 (0.9-1.15) Activated Partial Thromboplast Time 28.0 SEC (24.5-34.5) Lipase 45 U/L (12-53) Other Laboratory Tests 08/13/24 04:23 Brief Hx & Hospital Course: HPI: 18-year-old male patient with a history of marijuana nicotine use who presented to the Emergency per minute with a epigastric abdominal pain, nausea, vomiting and diarrhea for the past two days. He described the menses as black greenish in color he had about six episodes of diarrhea with similar characteristics. Hospital course: On admission the patient reported chronic marijuana use daily and cigarette smoking 2-3 cigarettes per day. He noted having similar symptoms every three months for the past year and during physical examination midepigastric tenderness was noted. Laboratory work revealed leukocytosis hypokalemia and CT abdomen showed mild colitis of the ascending colon. No signs of infection were noted despite the leukocytosis and the clinical picture was most consistent with either viral gastroenteritis or cannabinoid hyperemesis syndrome. Symptoms improve after supportive care at electrolyte correction. Disposition: Discharged to home and patient was advised to follow up with PCP and GI doctor. Operations or Procedures [place] [address] Ph: [phone] DIAGNOSTIC IMAGING Diagnostic Imaging Report : [id number] Signed PATIENT: DANIEL LENNON FRANKCCT: [id number] UNIT: [id number] : 2005 LOC: ER ROOM / BED: / AGE / SEX: 18 / M ADM STATUS: REG ER SERVICE [id number] ORDERING PHYSICIAN: JOHAN COLVIN MD PROCEDURE(s): ABPLIV - CT AB PEL WITH IV CON ONLY REASON: abdominal pain ORDER NUMBER(s): [id number], ACCESSION NUMBER(s): [id number] Exam: CT CT AB PEL WITH IV CON ONLY History: abdominal pain Comparison Study: None available at time of dictation. Technique: Multidetector spiral CT of the abdomen was performed from lung bases to pubic symphysis. Axial imaging was performed with intravenous contrast following the uneventful administration of 100 ml Omnipaque 300. Coronal and sagittal multiplanar reformats were obtained from the axial data set by the technologist. Radiation Dose : 1. Abdomen/Pelvis: CTDIvol 6.21 mGy, DLP 362.3 mGy*cm. Findings: Lung Bases: Lung bases are clear. Visualized portions of the heart and pericardium are unremarkable. Liver: The liver is normal in size. No focal lesions. Gallbladder and Biliary Tree: The gallbladder is unremarkable. No intrahepatic or extrahepatic biliary ductal dilatation. Spleen: Unremarkable Pancreas: The pancreas enhances normally and there are no focal lesions. The main pancreatic duct is not dilated Adrenal Glands: Unremarkable Kidneys: Kidneys enhance symmetrically. No calculi or hydronephrosis. GI tract: The stomach is grossly normal in appearance.. No evidence of small bowel wall thickening or abnormal dilatation to suggest bowel obstruction. Mild wall thickening of the ascending colon. Normal caliber appendix. Peritoneum/mesentery/retroperitoneum. No evidence of free intraperitoneal air. No ascites. No evidence of suspicious lymphadenopathy. Abdominal Wall: Unremarkable. Vasculature: Abdominal aorta and main branches are unremarkable. Normal vascular enhancement. Urinary Bladder: Grossly unremarkable for degree of distention. Pelvic Organs: Unremarkable Musculoskeletal: No aggressive focal bony lesions, acute fractures or dislocation. IMPRESSION: 1. Findings which may represent mild colitis of the ascending colon. No bowel obstruction. No pneumoperitoneum or free fluid. 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 #Rule out upper GI bleeding #Diarrhea , rule out lower GI bleeding #Drug abuse, marijuana use #nicotine dependency/vape #Hypokalemia Discharge Disposition: Home SNF Discharge Will this Physician continue t: No Discharge Instruct/Medications Diet: Regular, Cardiac 2g Na,low cholest Activity: No Restrictions, As Tolerated Follow Up/Referral: follow up with pcp within 2 weeks follow up with gi within 2 weeks Medications: no meds Discharge Statement: "Patient was advised to return to the ER or call 911 if any headaches, dizziness, shortness of breath, chest pain, abdominal pain, bleeding, fevers, or worsening of medical condition. Patient was counseled about treatment plan, medications, possible side effects, patientverbalized understanding. All questions were answered to the best of my ability. This discharge took greater then 30 minutes in planning, reviewing documentation, counseling the patient, and discussing with other team members." ASSESSMENT ASSESSMENT Assessment hyperemesis induced by marijuana Date of Service: Aug 13, 2024 Billing Provider: LISE FROST MD Common Visit Codes: [id number] DISCH DAY >30min RUSSELL LEÓN RESIDENT Aug 13, 2024 21:46 LISE FROST MD Aug 15, 2024 11:14
== END 2024-08-13 14:20 | disposition home or self-care (01) | DRG 249 ==
LOC: ER 01:20 → OVERFLOW 09:22 → CENTRAL 16:48
PROVIDERS: ADMIT Student in an Organized Health Care Education/Training Program; ATTEND Student in an Organized Health Care Education/Training Program
DX: A09 Infectious gastroenteritis and colitis, unspecified (principal); E87.6 Hypokalemia; Z20.822 Contact with and (suspected) exposure to COVID-19; F17.200 Nicotine dependence, unspecified, uncomplicated; F19.10 Other psychoactive substance abuse, uncomplicated; Z79.899 Other long term (current) drug therapy; R11.2 Nausea with vomiting, unspecified; F12.10 Cannabis abuse, uncomplicated
CPT/HCPCS: 36415; 74177; 80048; 80053; 80307; 81001; 83605; 83690; 83735; 83986; 84132; 85025; 85610; 85730; 87040; 87426; 87804; 96365; G0378; J2405; J2470; J3490

== ENCOUNTER 2024-11-18 16:44 | Emergency (ER) | payer MEDICAID ==
[~2024-11-18] VITALS: Ht 175.3 cm; Wt 71.0 kg
[~2024-11-18 16:44] MED LIST changes: -CLIN1CAP70 PO; -LIDO2SOL26 MT
--- NOTE | 2024-11-18 17:02 | ED.PDOC ---
History of Present Illness HPI Comments 18 year old male with a Social Hx of Marijuana use presents to the ED for the c/c of N/V with associated Dizziness. Pt states that his symptoms started yesterday and states he has been "throwing up black". Pt notes he was here in July for the same c/c and the last time he smoked Marijuana was this past . No other symptoms or modifying factors reported at this time. Patient is alert and oriented x4 and has a stable gait. Time Seen by MD: 16:58 Primary Care Provider: NONE Reviewed Notes: Nurses Notes, Medications, Allergies Allergies: Coded Allergies: NO KNOWN ALLERGIES (Unverified , 06/08/22) Home Meds Active Scripts Pantoprazole Sodium Sesquihydr (Protonix) 40 Mg Tab, 40 MG PO DAILY, #30 TAB Prov:MESSI VIVAR MD 11/18/24 Ondansetron Odt 4MG Tab (ZOFRAN PO) 4 Mg Tb, 4 MG PO TID PRN, #20 TAB ODT TAB-DISSOLVE IN MOUTH, THEN SWALLOW Prov:MESSI VIVAR MD 11/18/24 Ondansetron (Zofran) 4 Mg Tab, 1 TAB PO Q6HR PRN, #10 TAB 0 Refills Prov:PAULA HOANG 06/08/22 Information Source: Patient Mode of Arrival: Ambulatory Severity: Moderate Timing: Hours Duration: Since onset, Hours Prehospital treatment: None Past Medical History PAST MEDICAL HISTORY: Denies Surgical History: Denies all surgeries Family History Family History: Family hx of DM Social History Smoker: Non-Smoker Alcohol: Denies ETOH Use Drugs: Marijuana Lives In: Home Constitutional: denies: chills, diaphoresis, fatigue, fever, malaise, sweats, weakness, others EENTM: denies: blurred vision, double vision, ear bleeding, ear discharge, ear drainage, ear pain, ear ringing, eye pain, eye redness, hearing loss, mouth pain, mouth swelling, nasal discharge, nose bleeding, nose congestion, nose pain, photophobia, tearing, throat pain, throat swelling, voice changes, others Respiratory: denies: cough, hemoptysis, orthopnea, SOB at rest, shortness of breath, SOB with excertion, stridor, wheezing, others Cardiovascular: denies: chest pain, dizzy spells, diaphoresis, Dyspnea on exertion, edema, irregular heart beat, left arm pain, lightheadedness, palpitations, PND, syncope, others Gastrointestinal: reports: nausea, vomiting; denies: abdomen distended, abdominal pain, blood streaked bowels, constipated, diarrhea, dysphagia, difficulty swallowing, hematemesis, melena, poor appetite, poor fluid intake, rectal bleeding, rectal pain, others Genitourinary: denies: burning, dysuria, flank pain, frequency, hematuria, incontinence, penile discharge, penile sore, pain, testicle pain, testicle swelling, urgency, others Neurological: reports: dizziness; denies: fainting, headache, left sided numbness, left sided weakness, numbness, paresthesia, pre-existing deficit, right sided numbness, right sided weakness, seizure, speech problems, tingling, tremors, weakness, others Musculoskeletal: denies: back pain, gout, joint pain, joint swelling, muscle pain, muscle stiffness, neck pain, others Integumetry: denies: bruises, change in color, change in hair/nails, dryness, laceration, lesions, lumps, rash, wounds, others Allergic/Immunocompromised: denies: Difficulty Healing, Frequent Infections, Hives, Itching, others Hematologic/Lymphatic: denies: anemia, blood clots, easy bleeding, easy bruising, swollen glands, others Endocrine: denies: excessive hunger, excessive sweating, excessive thirst, excessive urination, flushing, intolerance to cold, intolerance to heat, unexplained weight gain, unexplained weight loss, others Psychiatric: denies: anxiety, bipolar disorder, depression, hopeless, panic disorder, schizophrenia, sleepless, suicidal, others All Other Systems: Reviewed and Negative Physical Exam General Appearance: Mild Distress HEENT: Normal ENT Inspection, Pharynx Normal, TMs Normal Neck: Full Range of Motion, Non-Tender, Normal, Normal Inspection Respiratory: Chest Non-Tender, Lungs Clear, No Accessory Muscle Use, No Respiratory Distress, Normal Breath Sounds Cardiovascular: No Edema, No JVD, No Murmur, No Gallop, Normal Peripheral Pulses, Regular Rate/Rhythm Breast Exam: Deferred Gastrointestinal: Epigastric, No Organomegaly, No Pulsatile Mass, Normal Bowel Sounds, Soft, Tenderness Genitalia: Deferred Pelvic: Deferred Rectal: Deferred Extremities: No calf tenderness, Normal capillary refill, Normal inspection, Normal range of motion, Non-tender, No pedal edema Musculoskeletal : Apperance: Normal Neurologic: Alert, coin machine mechanic II-XII nml as Tested, No Motor Deficits, Normal Affect, Normal Mood, No Sensory Deficits Cerebellar Function: Normal Reflexes: Normal Skin: Dry, Normal Color, Warm Lymphatic: No Adenopathy Was a procedure done? Was a procedure done?: No Differential Dx Considerations may include: Gastritis, gastroenteritis, hyperemesis cannabinoid X-Ray, Labs, Meds, VS Vital Signs Date Time Temp Pulse Resp B/P (MAP) Pulse Ox O2 Delivery O2 Flow Rate FiO2 11/18/24 18:38 61 16 99 Room Air 11/18/24 18:38 99.4 61 16 144/90 (108) 99 99.4 11/18/24 17:03 99.2 68 18 134/83 (100) 97 99.2 Lab Test 11/18/24 17:27 Range/Units White Blood Count 16.0 H 4.4-10.8 10^3/uL Red Blood Count 5.46 4.5-5.90 10^6/uL Hemoglobin 17.4 13.5-17.5 g/dL Hematocrit 50.1 41.0-53.0 % Mean Corpuscular Volume 91.7 80.0-100.0 fL Mean Corpuscular Hemoglobin 31.8 28.0-32.0 pg Mean Corpuscular Hemoglobin Concent 34.7 32.0-36.0 g/dL Red Cell Distribution Width 13.2 11.8-14.3 % Platelet Count 219 140-450 10^3/uL Mean Platelet Volume 9.7 6.9-10.8 fL Neutrophils (%) (Auto) 90.3 H 37.0-80.0 % Lymphocytes (%) (Auto) 5.7 L 10.0-50.0 % Monocytes (%) (Auto) 3.7 0.0-12.0 % Eosinophils (%) (Auto) 0.1 0.0-7.0 % Basophils (%) (Auto) 0.2 0.0-2.0 % Neutrophils # (Auto) 14.4 H 1.6-8.6 10 ^3/uL Lymphocytes # (Auto) 0.9 0.4-5.4 10 ^3/uL Monocytes # (Auto) 0.6 0-1.3 10 ^3/uL Eosinophils # (Auto) 0 0-0.8 10 ^3/uL Basophils # (Auto) 0 0-0.2 10 ^3/uL Nucleated Red Blood Cells 0.0 % Sodium Level 140 136-145 mmol/L Potassium Level 3.1 L 3.5-5.1 mmol/L Chloride Level 102 98-107 mmol/L Carbon Dioxide Level 23 20-31 mmol/L Anion Gap 15 5-15 Blood Urea Nitrogen 14 9-23 mg/dL Creatinine 1.11 0.700-1.30 mg/dL Glomerular Filtration Rate Calc 98 >90 mL/min BUN/Creatinine Ratio 12.6 10.0-20.0 Serum Glucose 111 H 74-106 mg/dL Calcium Level 10.2 8.7-10.4 mg/dL Total Bilirubin 1.5 H 0.2-1.0 mg/dL Aspartate Amino Transferase (AST) 22 13-40 U/L Alanine Aminotransferase (ALT) 26 7-40 U/L Alkaline Phosphatase 70 46-116 U/L Total Protein 8.4 H 5.7-8.2 g/dL Albumin 5.6 H 3.2-4.8 g/dL Lipase 31 12-53 U/L Current Medications Medications (Trade) Dose Ordered Sig/Janak Route Start Time Stop Time Status Last Admin Pantoprazole Sodium (Protonix) 40 mg ONCE ONCE IV 11/18/24 17:00 11/18/24 17:01 DC 11/18/24 18:34 Prochlorperazine Edisylate (Compazine Inj) 10 mg ONCE ONCE IV 11/18/24 17:00 11/18/24 17:01 DC 11/18/24 18:34 IV Hep-Lock was established The patient was given Protonix 40 mg IV push The patient was given Compazine 10 mg IV push The patient's chemistry panel shows a potassium with the was decreased at 3.1 The rest of the chemistry panel is within normal limits The lipase is within normal limits [place] [address] that was most likely secondary to the vomiting The patient was given substance abuse counseling The patient is being discharged on the Protonix and Zofran Time of 1ST Reevaluation: 17:28 Reevaluation 1ST: Unchanged Patient Education/Counseling: Diagnosis, Treatment, Prognosis, Need For Follow Up Family Education/Counseling: No Family Present SEPSIS Sepsis Screen Physician Orders Heplock Iv (11/18/24 16:59) Vital Signs Date Time Temp Pulse Resp B/P (MAP) Pulse Ox O2 Delivery O2 Flow Rate FiO2 11/18/24 18:38 61 16 99 Room Air 11/18/24 18:38 99.4 61 16 144/90 (108) 99 99.4 11/18/24 17:03 99.2 68 18 134/83 (100) 97 99.2 Laboratory Tests Test 11/18/24 17:27 White Blood Count 16.0 10^3/uL (4.4-10.8) H Medications Medications Dose Ordered Sig/Janak Route Start Time Stop Time Status Last Admin Dose Admin Pantoprazole Sodium 40 mg ONCE ONCE IV 11/18/24 17:00 11/18/24 17:01 DC 11/18/24 18:34 Prochlorperazine Edisylate 10 mg ONCE ONCE IV 11/18/24 17:00 11/18/24 17:01 DC 11/18/24 18:34 Departure 1 Departure Time of Disposition: 18:53 Impression: Primary Impression: Cannabinoid hyperemesis syndrome Disposition: 01 HOME / SELF CARE / HOMELESS Condition: Fair e-Prescriptions Pantoprazole Sodium Sesquihydr (Protonix) 40 Mg Tab 40 MG PO DAILY, #30 TAB Prov: MESSI VIVAR MD 11/18/24 Ondansetron Odt 4MG Tab (ZOFRAN PO) 4 Mg Tb 4 MG PO TID PRN, #20 TAB ODT TAB-DISSOLVE IN MOUTH, THEN SWALLOW Prov: MESSI VIVAR MD 11/18/24 Discharged With: Self Critical Care Note Critical Care Time?: No Stability Stability form required: No Heart Score Heart Score: Heart Score Response (Comments) Value History N/A 0 EKG N/A 0 Age N/A 0 Risk Factors N/A 0 Troponin N/A 0 Total 0 I personally scribed for MESSI VIVAR MD ([email or web address]) on 11/18/24 at 17:02. Electronically submitted by Chandrakant Mar ([email or web address]). MESSI VIVAR MD Nov 18, 2024 17:02
[2024-11-18 17:58] LABS: Hematocrit 50.1 % (41.0-53.0); Hemoglobin 17.4 g/dL (13.5-17.5); Mean Corpuscular Hemoglobin 31.8 pg (28.0-32.0); Mean Corpuscular Volume 91.7 fL (80.0-100.0); Nucleated Red Blood Cells % 0.0 %
[2024-11-18 18:17] LABS: Alanine Aminotransferase 26 U/L (7-40); Alkaline Phosphatase 70 U/L (46-116); Anion Gap 15 (5-15); BUN/Creatinine Ratio 12.6 (10.0-20.0); Blood Urea Nitrogen 14 mg/dL (9-23); Calcium 10.2 mg/dL (8.7-10.4); Carbon Dioxide 23 mmol/L (20-31); Chloride 102 mmol/L (98-107); Lipase 31 U/L (12-53); Sodium 140 mmol/L (136-145)
[2024-11-18 18:30] LABS: Albumin 5.6 g/dL (3.2-4.8); Bilirubin, Total 1.5 mg/dL (0.2-1.0); Glucose 111 mg/dL (74-106); Potassium 3.1 mmol/L (3.5-5.1); Total Protein 8.4 g/dL (5.7-8.2)
[2024-11-18] MEDS: PANTOPRAZOLE 40 MG/10 ML VIAL INJ IV ONE (18:34)
[2024-11-18] MEDS: PROCHLORPERAZINE EDISYLATE 5 MG/ML 2ML VIAL IV ONE (18:34)
[2024-11-18] MEDS: MORPHINE SULFATE 4 MG/ML SYR/VIAL IV ONE (18:34)
[2024-11-18] MEDS ORDERED: ZOFR4T PO (18:51)
[2024-11-18] MEDS ORDERED: PANT40TA2 PO (18:51)
[2024-11-18 20:30] VITALS: BP 134/85; PULSE 84; RESP 18; TEMP 99; O2SAT 98
== END 2024-11-18 20:54 | disposition home or self-care (01) ==
LOC: ER 16:47
DX: F12.90 Cannabis use, unspecified, uncomplicated (principal); Z79.899 Other long term (current) drug therapy
CPT/HCPCS: 36415; 80053; 83690; 85025; 96374; 96375; 99284; J0780; J2470

== ENCOUNTER 2025-02-23 16:23 | Emergency (ER) | payer MEDICAID ==
[~2025-02-23] VITALS: Ht 175.3 cm; Wt 71.0 kg
[~2025-02-23 16:23] MED LIST changes: +PANT40TA2 PO
--- NOTE | 2025-02-23 17:10 | ED.PDOC ---
Eye-HPI HPI Comments 19-year-old male that presents to the ED for complaint of sore throat. Patient is a has been having a sore throat since past five days. Patient states he went to urgent care two days prior states that he was placed on antibiotic amoxicillin. The patient states since he has been having increased pain when attempting to eat or drink. Patient in the ED has not noted swelling to the left palatine tonsil.Patient otherwise denies any other symptoms at this time. Chief Complaint: Sore Throat Time Seen by MD: 17:08 Primary Care Provider: NONE Reviewed Notes: Medications, Allergies Allergies: Coded Allergies: NO KNOWN ALLERGIES (Unverified , 06/08/22) Home Meds Active Scripts Pantoprazole Sodium Sesquihydr (Protonix) 40 Mg Tab, 40 MG PO DAILY, #30 TAB Prov:MESSI VIVAR MD 11/18/24 Ondansetron Odt 4MG Tab (ZOFRAN PO) 4 Mg Tb, 4 MG PO TID PRN, #20 TAB ODT TAB-DISSOLVE IN MOUTH, THEN SWALLOW Prov:MESSI VIVAR MD 11/18/24 Ondansetron (Zofran) 4 Mg Tab, 1 TAB PO Q6HR PRN, #10 TAB 0 Refills Prov:PAULA HOANG 06/08/22 Information Source: Patient Mode of Arrival: Ambulatory Past Medical History PAST MEDICAL HISTORY: Denies Surgical History: Denies all surgeries Family History Family History: Family hx of DM Social History Smoker: Non-Smoker Alcohol: Denies ETOH Use Drugs: Marijuana Lives In: Home Constitutional: denies: chills, diaphoresis, fatigue, fever, malaise, sweats, weakness, others EENTM: reports: throat pain, throat swelling; denies: blurred vision, double vision, ear bleeding, ear discharge, ear drainage, ear pain, ear ringing, eye pain, eye redness, hearing loss, mouth pain, mouth swelling, nasal discharge, nose bleeding, nose congestion, nose pain, photophobia, tearing, voice changes, others Respiratory: denies: cough, hemoptysis, orthopnea, SOB at rest, shortness of breath, SOB with excertion, stridor, wheezing, others Cardiovascular: denies: chest pain, dizzy spells, diaphoresis, Dyspnea on exertion, edema, irregular heart beat, left arm pain, lightheadedness, palpitations, PND, syncope, others Gastrointestinal: denies: abdomen distended, abdominal pain, blood streaked bowels, constipated, diarrhea, dysphagia, difficulty swallowing, hematemesis, melena, nausea, poor appetite, poor fluid intake, rectal bleeding, rectal pain, vomiting, others Genitourinary: denies: burning, dysuria, flank pain, frequency, hematuria, incontinence, penile discharge, penile sore, pain, testicle pain, testicle swelling, urgency, others Neurological: denies: dizziness, fainting, headache, left sided numbness, left sided weakness, numbness, paresthesia, pre-existing deficit, right sided numbness, right sided weakness, seizure, speech problems, tingling, tremors, weakness, others Musculoskeletal: denies: back pain, gout, joint pain, joint swelling, muscle pain, muscle stiffness, neck pain, others Integumetry: denies: bruises, change in color, change in hair/nails, dryness, laceration, lesions, lumps, rash, wounds, others Allergic/Immunocompromised: denies: Difficulty Healing, Frequent Infections, Hives, Itching, others Hematologic/Lymphatic: denies: anemia, blood clots, easy bleeding, easy bruising, swollen glands, others Endocrine: denies: excessive hunger, excessive sweating, excessive thirst, excessive urination, flushing, intolerance to cold, intolerance to heat, unexplained weight gain, unexplained weight loss, others Psychiatric: denies: anxiety, bipolar disorder, depression, hopeless, panic disorder, schizophrenia, sleepless, suicidal, others All Other Systems: Reviewed and Negative Physical Exam General Appearance: No Apparent Distress, Normal HEENT: Pharyngeal Erythema (Swelling to the left tonsil, 3+ swelling, no compromise to the airway. Her), TMs Normal Neck: Full Range of Motion, Non-Tender, Normal, Normal Inspection Respiratory: Chest Non-Tender, Lungs Clear, No Accessory Muscle Use, No Respiratory Distress, Normal Breath Sounds Cardiovascular: No Edema, No JVD, No Murmur, No Gallop, Normal Peripheral Pulses, Regular Rate/Rhythm Breast Exam: Deferred Gastrointestinal: No Organomegaly, Non Tender, No Pulsatile Mass, Normal Bowel Sounds, Soft Genitalia: Deferred Pelvic: Deferred Rectal: Deferred Extremities: No calf tenderness, Normal capillary refill, Normal inspection, Normal range of motion, Non-tender, No pedal edema Musculoskeletal : Apperance: Normal Neurologic: Alert, 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 Was a procedure done?: No EENT DIFF Eye: N/A Sore Throat: Mononeucleosis, Say's Angina, Peritonsillar Abscess, Perit onsillar Cellulitis, Pharyngitis, Diptheria, Streptococcal, Viral Pharyngitis X-Ray, Labs, Meds, VS Vital Signs Date Time Temp Pulse Resp B/P (MAP) Pulse Ox O2 Delivery O2 Flow Rate FiO2 02/23/25 16:24 98.9 103 18 146/92 96 98.9 X-Ray, Labs, Meds, VS Comment ASPIRATION OF THE LEFT TONSIL WAS ATTEMPTED WITHOUT ANY SIGNIFICANT PULLBACK. UPON ASSESSMENT PATIENT DOES HAVE CLEAR PAIN AIRWAY. PATIENT WILL BE STARTED ON ANTIBIOTICS AND ADVISED TO FOLLOW UP IN 24 HOURS FOR RECHECK. Time of 1ST Reevaluation: 17:40 Reevaluation 1ST: Unchanged Patient Education/Counseling: Diagnosis, Treatment, Need For Follow Up (FOLLOW UP IN 24 HOURS FOR RECHECK) Family Education/Counseling: No Family Present SEPSIS Sepsis Screen Date sepsis recognized/suspect: Feb 23, 2025 Time Sepsis recognized/suspect: 1625 Recent Procedure: No On Antibiotic Therapy: No Respiratory Rate >20: No Heart Rate >90: No Temp<36 C (96.8 F) or >38.3 C: No SBP <90 or MAP <65 mmHG: No New Acute Mental Status Change: No Is the patient on CPAP, BIPAP,: No Physician Orders Neck With Contrast Soft (02/23/25 17:08) Ampicillin & Sulbactam Sodium (Unasyn) (02/23/25 19:30) Vital Signs Date Time Temp Pulse Resp B/P (MAP) Pulse Ox O2 Delivery O2 Flow Rate FiO2 02/23/25 16:24 98.9 103 18 146/92 96 98.9 Departure 1 Departure Time of Disposition: 20:33 Impression: Primary Impression: Peritonsillar abscess Disposition: HOME / SELF CARE / HOMELESS Condition: Fair e-Prescriptions Hydrocodone-Acetaminophen (Hydrocodone Bitartrate/AC 5-325 mg) 1 Tab Tab 1 TAB PO TID, #15 TAB Prov: CHRISSIE STOUT 02/23/25 Amoxicillin & Pot Clavulanate (AUGMENTIN TABLET) 875 Mg Tb 875 MG PO BID for 10 Days, #20 TAB Prov: CHRISSIE STOUT 02/23/25 Discharged With: Self Critical Care Note Critical Care Time?: No Stability Stability form required: No Heart Score Heart Score: Heart Score Response (Comments) Value History N/A 0 EKG N/A 0 Age N/A 0 Risk Factors N/A 0 Troponin N/A 0 Total 0 I personally scribed for CHRISSIE STOUT ([email or web address]) on 02/23/25 at 17:10. Electronically submitted by Cuate Dinh ([email or web address]). CHRISSIE STOUT Feb 23, 2025 17:10
[2025-02-23] MEDS: IOHEXOL 300 MG/ML 100ML BOTTLE IJ ONE (17:50)
--- NOTE | 2025-02-23 18:06 | DVH ---
EXAM: CT NECK WITH CONTRAST SOFT INDICATION: abcess TECHNIQUE: Volumetric multidetector CT images of the cervical soft tissues were obtained after admini stration of 100 ml low osmolar intravenous contrast. All CT scans at this facility use dose modulatio n, iterative reconstruction, and/or weight based dosing when appropriate to reduce radiation dose to as low as reasonably achievable. COMPARISON: None FINDINGS: [ORBITS, PARANASAL SINUSES, AND SKULL BASE]: Normal. [NASOPHARYNX: Normal. [SUPRAHYOID NECK]: Large left tonsillar abscess with peripheral enhancement measuring 2.5 x 2.3 cm ce ntered in the left palatine tonsil. Edema and effacement of the parapharyngeal fat planes. The parot id and submandibular glands are normal. Significant craniocaudal inferior extent of the tonsillar abs cess region of the level of the floor of the mouth measuring 4.8 cm [INFRAHYOID NECK]: Normal appearance of the larynx, hypopharynx, and supraglottis. [THYROID]: Normal appearance of the thyroid gland. [LYMPH NODES]: Multiple likely reactive bilateral cervical chain lymphadenopathy, [id number] [VASCULATURE STRUCTURES]: The vascular structures of the neck appear patent. [OTHER]: The visualized lung apices are clear. The limited visualized portions of the brain are unrem arkable. The osseous structures are unremarkable. IMPRESSION: 1. Large left tonsillar abscess with peripheral enhancement measuring 2.5 x 2.3 cm centered in the le ft palatine tonsil. 2. Edema and effacement of the parapharyngeal fat planes. 3. Significant craniocaudal inferior extent of the tonsillar abscess region of the level of the floor of the mouth measuring 4.8 cm.
[2025-02-23] MEDS: BENZOCAINE (DENTAL)20% 1 SPR SPRAY MT ONE (18:45)
[2025-02-23] MEDS ORDERED: AUG875T PO (20:34)
[2025-02-23] MEDS ORDERED: HYDR-4902 PO (20:34)
[2025-02-23] MEDS: AMPICILLIN & SULBACTAM SODIUM 3 GM in SODIUM CHL 0.9% 100 ML IV ONE (20:46)
[2025-02-23 21:20] VITALS: BP 137/86; PULSE 72; RESP 18; TEMP 99; O2SAT 99
[2025-02-23] MEDS: HYDROcodone-ACET 5/325MG TAB PO ONE (21:53)
== END 2025-02-23 22:02 | disposition home or self-care (01) ==
LOC: ER 16:24
DX: J36 Peritonsillar abscess (principal)
CPT/HCPCS: 70491; 96365; 99285; Q9967